=== PATIENT | female | born 1975 | race Two or more races ===

== ENCOUNTER 2016-06-24 05:32 | Day surgery (SDC) | payer OTHER ==
[2016-06-13 10:17] LABS: HEMATOCRIT 40.4 % (36.0-47.0); HEMOGLOBIN 13.2 g/dL (12.0-15.5); HGB HCT DIFFERENCE -0.8; MEAN CORPUSCULAR HGB CONC 32.7 g/dL (32.0-36.0); MEAN CORPUSCULAR VOLUME 92 fl (80-97); RED BLOOD COUNT 4.39 10^6/uL (3.72-5.28); RED CELL DISTRIBUTION WIDTH 12.8 % (11.5-14.0); WHITE BLOOD COUNT 10.4 10^3/uL (4.0-10.5)
[2016-06-13 10:22] LABS: APPEARANCE,URINE SLIGHTLY-CLOUDY; BILIRUBIN,URINE NEGATIVE (NEGATIVE); GLUCOSE, URINE >=500 mg/dL (NEGATIVE); KETONES,URINE TRACE mg/dL (NEGATIVE); LEUKOCYTE ESTERASE,URINE TRACE (NEGATIVE); NITRITE,URINE NEGATIVE (NEGATIVE); PROTEIN,URINE NEGATIVE (NEGATIVE); URINE SPECIFIC GRAVITY 1.025; UROBILINOGEN,URINE NEGATIVE mg/dL (<2.0)
[2016-06-13 10:44] LABS: ALANINE AMINOTRANSFERASE 58 U/L (9-52); ALBUMIN 4.1 g/dL (3.5-5.0); ALKALINE PHOSPHATASE 54 U/L (38-126); ANION GAP 13 (5-19); ASPARTATE AMINO TRANSFERASE 29 U/L (14-36); BILIRUBIN,TOTAL 0.7 mg/dL (0.2-1.3); BLOOD UREA NITROGEN 15 mg/dL (7-20); CALCIUM 8.9 mg/dL (8.4-10.2); CARBON DIOXIDE 26 mmol/L (22-30); CHLORIDE 102 mmol/L (98-107); CREATININE RESULT 0.54 mg/dL (0.52-1.25); GLUCOSE 245 mg/dL (75-110); POTASSIUM 4.5 mmol/L (3.6-5.0); SODIUM 140.8 mmol/L (137-145); TOTAL PROTEIN 6.6 g/dL (6.3-8.2)
--- NOTE | 2016-06-13 19:02 | EKG REPORT ---
SEVERITY:- ABNORMAL ECG - SINUS RHYTHM PROBABLE ANTEROSEPTAL INFARCT, OLD : Confirmed by: Olvin Flody MD 13-Jun-2016 19:01:43
[~2016-06-24 05:32] MED LIST: CEFAZOLIN SODIUM 1 GM in DEXTROSE 5%-WATER 50 ML IV SCH; LACTATED RINGERS 1000 ML IV PRN; LIDOCAINE 0.5% INJ-PF (5 MG/ML) 50 ML SDV SUBCUT PRN
[2016-06-24] MEDS ORDERED: FENTANYL CITRATE INJ/PF 100 MCG/2 ML AMPUL ONE ×2 (06:41)
[2016-06-24] MEDS ORDERED: MIDAZOLAM 2 MG/2 ML INJ ONE (06:42)
[2016-06-24] MEDS ORDERED: MORPHINE SULFATE 10 MG/ML INJ ONE (06:42)
[2016-06-24] MEDS ORDERED: ACETAMINOPHEN 100 ML IV ONE (06:42)
[2016-06-24] MEDS ORDERED: DEXMEDETOMIDINE INJ 80 MCG/20 ML VIAL IV ONE (06:42)
[2016-06-24] MEDS ORDERED: PROPOFOL INJ 200 MG/20 ML VIAL IV ONE (06:42)
[2016-06-24] MEDS ORDERED: LIDOCAINE 1% INJ-PF (10 MG/ML) 30 ML SDV ONE (06:55)
[2016-06-24] MEDS ORDERED: BUPIVACAINE HCL 0.25 % INJ/PF (2.5 MG/1 ML) 30 ML VIAL ONE (06:55)
[2016-06-24] MEDS ORDERED: FENTANYL CITRATE INJ/PF 100 MCG/2 ML AMPUL IV PRN ×3 (07:21)
[2016-06-24] MEDS ORDERED: PROMETHAZINE HCL INJ 25 MG/1 ML VIAL IV PRN ×3 (07:21→09:25)
[2016-06-24] MEDS ORDERED: MORPHINE SULFATE 10 MG/ML INJ IV PRN (07:21)
[2016-06-24] MEDS ORDERED: OXYCODONE-ACETAMINOPHEN 5-325 MG TABLET PO PRN ×4 (07:21→09:24)
[2016-06-24] MEDS ORDERED: DIPHENHYDRAMINE HCL 50 MG/ML VIAL IV PRN (07:21)
[2016-06-24] MEDS ORDERED: MEPERIDINE HCL/PF INJ 25 MG/1 ML DISP.SYRIN IV PRN (07:21)
--- NOTE | 2016-06-24 09:38 | OPERATIVE REPORT E ---
Operative Report NAME: CHELSEY BRAND : 1975 AGE: 41Y DATE OF SURGERY: 06/24/2016 ROOM: PREOPERATIVE DIAGNOSES: 1. Dysfunctional uterine bleeding. 2. Undesired fertility. POSTOPERATIVE DIAGNOSES: 1. Dysfunctional uterine bleeding. 2. Undesired fertility. OPERATION: 1. Dilation and curettage. 2. Hysteroscopy. 3. NovaSure. 4. Laparoscopic Filshie clip application bilaterally. SURGEON: NJ ROMERO M.D. ANESTHESIA: General and 0.25% Marcaine. ESTIMATED BLOOD LOSS: Negligible. PERTINENT HISTORY AND OPERATIVE FINDINGS: This is a 41-year-old female desires elective an sterilization. She was also having problems with irregular bleeding and wanted to address that at this time as well. At the time of surgery, the vagina appeared to be normal. Cervix was fibrinous. The uterus was midline, slightly enlarged. Adnexa, tubes and ovaries appeared to be normal. PROCEDURE: Patient was brought into the OR, placed on the table in a supine position, induced under general anesthesia. Following this, she was repositioned in dorsal lithotomy position, prepped and draped in a sterile fashion. The bladder was drained of about 15 mL of clear yellow urine. An exam under anesthesia was done. A weighted speculum was inserted. The cervix was grasped on its anterior lip with a single-tooth tenaculum, sounded to 10 cm and a tenaculum probe was then inserted. The other equipment was removed. Attention was turned toward the abdominal wall. A Veress needle was introduced umbilically carried through various layers until the abdominal cavity was entered. Upon entering the abdominal cavity, approximately 4 liters of CO2 were injected. The opening pressure was 6 cm of water, the closing pressure was 15 cm of water. Having established a pneumoperitoneum, the Veress needle was removed. A small incision was made infraumbilical. Through this incision a trocar and sleeve were inserted. The trocar was removed, and through the sleeve a laparoscope was inserted. A second incision was made suprapubically. Through this incision a trocar and sleeve were inserted. The trocar and sleeve were removed, and through the sleeve a probe was inserted. The contents of the pelvis and abdomen were then visualized without any essential abnormalities. Having accomplished this, the Filshie clip applicator was then directed through the suprapubic port. The right and left tubes were then clipped with the Filshie clip in the narrow portion. This terminated this part of procedure. Pictures were taken. The lower sleeve was removed. There was no evidence of active bleeding. The CO2 was allowed to escape. The upper sleeve was then removed as well. We approximately 4 mL of 0.25% Marcaine injected in the subumbilical incision and another 4 mL of 0.25% Marcaine injected in the suprapubic incision. The fascia was then closed with interrupted 0 Vicryl in both the subumbilical and suprapubic incisions. Skin edges in the subumbilical incision were closed with a subcuticular using a 4.0 Prolene. The skin edges in the suprapubic area were closed with interrupted using 4-0 Prolene. This terminated this part of the procedure. The patient had a bandages applied. Attention was turned back down to the pelvis. The tenaculum probe was removed and a weighted speculum was inserted. The cervix was grasped on its anterior lip with two single-tooth tenaculums. It was sounded to 10 cm. It was dilated to a #8 dilator. The cavity length turned out to be 5 cm as the cervical length was 5 cm. Having established the length of the uterine cavity, a curettage was carried out and this was sent to the laboratory for further evaluation. Then, the hysteroscope was introduced through the cervix and the endometrial cavity was visualized. There were no abnormalities visualized. The hysteroscope was allowed to drain the saline out and then the NovaSure equipment was purged and gently inserted through the cervical os until we reached the fundus. The NovaSure was opened and then going vjnpu-dykgr-eapo-west and rotating 45 degrees and pulling back in between, we established a width of 4.3. Having established the length of 5 and a width of 4.3, the equipment was purged and then fired. We had a burn time I think of about 50+ seconds; having accomplished this, the equipment was then closed and removed. The hysteroscope was then reinserted and visualized. It appeared that we had a fairly good burn. The excess saline was then sucked out and the other equipment was removed. There was some bleeding on the tenaculum on the left side. This was treated with Monsel. This took care of the bleeding. The equipment was removed. The patient was put back into a supine position and anesthesia was discontinued. She was then transferred to the recovery room in satisfactory condition. Once again, estimated blood loss was negligible. Findings were consistent with dysfunctional uterine bleeding, no exact etiology was ascertained and fertility was handled with Filshie clips applied laparoscopically. DICTATING PHYSICIAN: NJ ROMERO M.D. [id number] PHY#: [id number] ID: [id number] JOB#: [id number] ACCT: [id number] cc:NJ ROMERO M.D. >
[2016-06-24] MEDS ORDERED: GLYCOPYRROLATE INJ 0.4 MG/2 ML VIAL ONE (09:46)
[2016-06-24] MEDS ORDERED: SUCCINYLCHOLINE CHLORIDE INJ 200 MG/10 ML VIAL ONE (09:46)
[2016-06-24] MEDS ORDERED: ROCURONIUM BROMIDE INJ 50 MG/5 ML VIAL IV ONE (09:46)
[2016-06-24] MEDS ORDERED: LIDOCAINE 2% INJ-PF (20 MG/ML) 10 ML AMPUL ONE (09:46)
[2016-06-24] MEDS ORDERED: ONDANSETRON HCL INJ/PF 4 MG/2 ML SDV ONE (09:46)
[2016-06-24] MEDS ORDERED: NEOSTIGMINE METHYLSULFATE 10 MG/10 ML VIAL ONE (09:46)
[2016-06-24] MEDS ORDERED: PHENYLEPHRINE HCL INJ/PF 10 MG/1 ML SDV ONE (09:46)
[2016-06-24] MEDS ORDERED: DEXAMETHASONE SOD PHOSPHATE INJ 4 MG/1 ML VIAL ONE (09:46)
[2016-06-24 11:17] VITALS: BP 122/70
== END 2016-06-24 10:45 | disposition home or self-care (01) ==
LOC: OROUT 05:32
PROVIDERS: ATTEND Obstetrics & Gynecology
PROC: 0UL74CZ Occlusion of Bilateral Fallopian Tubes with Extraluminal Device, Percutaneous Endoscopic Approach (ICD-10-PCS; principal; 2016-06-24 07:30)
DX: N92.1 Excessive and frequent menstruation with irregular cycle (principal); Z30.2 Encounter for sterilization; E11.9 Type 2 diabetes mellitus without complications; I10 Essential (primary) hypertension; E66.9 Obesity, unspecified; Z87.891 Personal history of nicotine dependence; Z79.4 Long term (current) use of insulin; Z79.82 Long term (current) use of aspirin; Z79.899 Other long term (current) drug therapy; I25.2 Old myocardial infarction; Z98.61 Coronary angioplasty status
CPT/HCPCS: 93005; 36415; 82962; 85027; 81025; 80053; 81001; 88305 ×2; 93010; 58671; J2250; J0690; J3490 ×3; J1100; J3010; J2270; J2370; J0330; J2405; J2704; J0131; 851

== ENCOUNTER → 2018-01-09 | Outpatient (CLI) | payer OTHER ==
--- NOTE | 2018-01-09 18:08 | WOMENS IMAGING REPORT ---
EXAM DESCRIPTION: BILAT SCREENING MAMMO W/CAD COMPLETED DATE/TIME: 01/09/2018 10:27 am REASON FOR STUDY: ROUTINE SCREENING Z12.31 Z12.31 ENCNTR SCREEN MAMMOGRAM FOR MALIGNANT NEOPLASM OF PAOLO COMPARISON: Baseline study TECHNIQUE: Standard craniocaudal and mediolateral oblique views of each breast recorded using digita l acquisition. LIMITATIONS: None. FINDINGS: No masses, calcifications or architectural distortion. No areas of suspicion. Read with the assistance of CAD. .[facility] - R2 Cenova Version 1.3 .[facility] - R2 Cenova Version 1.3 .[facility] - R2 Cenova Version 2.4 .[facility] R2 Cenova Version 2.4 .[facility] - R2 Gate Agent Version 9.2 IMPRESSION: NORMAL MAMMOGRAM. BIRADS 1. BREAST DENSITY: b. There are scattered areas of fibroglandular density. BIRAD: 1 NEGATIVE RECOMMENDATION: ROUTINE SCREENING COMMENT: The patient has been notified of the results by letter per SA requirements. Additional no tification policies are in place for contacting patient with suspicious or incomplete findings. Quality ID #225: The [employer] recommends an annual screening mammogram for women aged 40 years or over. This facility utilizes a reminder system to ensure that all patients receive reminder letters, and/or direct phone calls for appointments. This includes reminders for routine scr eening mammograms, diagnostic mammograms, or other Breast Imaging Interventions when appropriate. Th is patient will be placed in the appropriate reminder system. The [employer] (ACR) has developed recommendations for screening MRI of the breast s in certain patient populations, to be used in conjunction with mammography. Breast MRI surveillanc e may be appropriate for women with more than 20% lifetime risk of developing breast cancer as deter mined by genetic testing, significant family history of the disease, or history of mantle radiation f or Hodgkins Disease. ACR Practice Guidelines 2008. TECHNICAL DOCUMENTATION: FINDING NUMBER: (1) ASSESSMENT: (1) JOB ID: [id number] [employer]- All Rights Reserved Reading location - IP/workstation name: [email or web address]
== END ==
LOC: WI 09:27
PROVIDERS: ATTEND Physician Assistant
DX: Z12.31 Encounter for screening mammogram for malignant neoplasm of breast (principal)
CPT/HCPCS: 77067

== ENCOUNTER → 2019-02-03 | Outpatient (CLI) | payer OTHER ==
--- NOTE | 2019-02-04 13:13 | WOMENS IMAGING REPORT ---
EXAM DESCRIPTION: 3D SCREENING MAMMO BILAT COMPLETED DATE/TIME: 02/03/2019 1:57 pm REASON FOR STUDY: Z12.31 SCREENING MAMMO Z12.31 ENCNTR SCREEN MAMMOGRAM FOR MALIGNANT NEOPLASM OF B RE COMPARISON: 01/09/2018 EXAM PARAMETERS: Views: Standard craniocaudal and mediolateral oblique views of each breast recorded using digital acquisition and breast tomosynthesis. Read with the assistance of CAD. .[facility] - [employer] Umbrella Finisher Version 9.2 LIMITATIONS: None. FINDINGS: No suspicious masses, suspicious calcifications or architectural distortion. No areas of c oncern. IMPRESSION: NEGATIVE MAMMOGRAM. BIRADS 1. BREAST DENSITY: a. The breasts are almost entirely fatty. BIRAD: ASSESSMENT: 1 NEGATIVE RECOMMENDATION: ROUTINE SCREENING COMMENT: The patient has been notified of the results by letter per MQSA requirements. Additional no tification policies are in place for contacting patient with suspicious or incomplete findings. Quality ID #225: The [employer] recommends an annual screening mammogram for women aged 40 years or over. This facility utilizes a reminder system to ensure that all patients receive reminder letters, and/or direct phone calls for appointments. This includes reminders for routine scr eening mammograms, diagnostic mammograms, or other Breast Imaging Interventions when appropriate. Th is patient will be placed in the appropriate reminder system. TECHNICAL DOCUMENTATION: FINDING NUMBER: (1) ASSESSMENT: (1) JOB ID: [id number] [employer]- All Rights Reserved Reading location - IP/workstation name: [email or web address]
== END ==
LOC: WI 13:40
PROVIDERS: ATTEND Physician Assistant
DX: Z12.31 Encounter for screening mammogram for malignant neoplasm of breast (principal)
CPT/HCPCS: 77063; 77067

== ENCOUNTER → 2019-06-25 | Day surgery (SDC) | payer OTHER ==
--- NOTE | 2019-06-25 12:47 | RADIOLOGY REPORT (SQ) ---
EXAM DESCRIPTION: FLUORO/NEEDLE PLACEMENT; ARTHRO HIP INJ W/ANESTHESIA COMPLETED DATE/TIME: 06/25/2019 10:34 am REASON FOR STUDY: PAIN IN LEFT HIP M25.552 PAIN IN LEFT HIP COMPARISON: None. FLUOROSCOPY TIME: 20 seconds 2 images saved to PACS. LIMITATIONS: None. PROCEDURE: Procedure, risks, benefits and alternatives explained to patient who then gave written co nsent. The left hip was marked and a time-out was called for correct marking verification. Entry si te marked using fluoroscopic guidance. Hip prepped and draped using sterile technique. Local anesth esia achieved . Hypodermic needle introduced into the joint space under direct fluoroscopic visualiz ation. Non-ionic contrast instilled to confirm intra-articular position. Additional dilute non-ioni c contrast instilled. Needle removed and entry site covered with sterile bandage. No immediate comp lications noted. TECHNIQUE: Digital images acquired during fluoroscopy and stored on PACS. Patient immediately take n to the CT suite for additional imaging. INJECTION LOCATION: Left hip CONTRAST TYPE AND AMOUNT: 10 mL dilute Omnipaque. IMPRESSION: SUCCESSFUL NEEDLE PLACEMENT AND INJECTION FOR LEFT HIP CT ARTHROGRAM. COMMENT: None Quality ID 145: Final reports for procedures using fluoroscopy that document radiation exposure gia andrey, or exposure time and number of fluorographic images (if radiation exposure indices are not avail able) TECHNICAL DOCUMENTATION: JOB ID: [id number] [employer]- All Rights Reserved Reading location - IP/workstation name: [email or web address] [id number]
--- NOTE | 2019-06-25 12:47 | RADIOLOGY REPORT (SQ) ---
EXAM DESCRIPTION: FLUORO/NEEDLE PLACEMENT; ARTHRO HIP INJ W/ANESTHESIA COMPLETED DATE/TIME: 06/25/2019 10:34 am REASON FOR STUDY: PAIN IN LEFT HIP M25.552 PAIN IN LEFT HIP COMPARISON: None. FLUOROSCOPY TIME: 20 seconds 2 images saved to PACS. LIMITATIONS: None. PROCEDURE: Procedure, risks, benefits and alternatives explained to patient who then gave written co nsent. The left hip was marked and a time-out was called for correct marking verification. Entry si te marked using fluoroscopic guidance. Hip prepped and draped using sterile technique. Local anesth esia achieved . Hypodermic needle introduced into the joint space under direct fluoroscopic visualiz ation. Non-ionic contrast instilled to confirm intra-articular position. Additional dilute non-ioni c contrast instilled. Needle removed and entry site covered with sterile bandage. No immediate comp lications noted. TECHNIQUE: Digital images acquired during fluoroscopy and stored on PACS. Patient immediately take n to the CT suite for additional imaging. INJECTION LOCATION: Left hip CONTRAST TYPE AND AMOUNT: 10 mL dilute Omnipaque. IMPRESSION: SUCCESSFUL NEEDLE PLACEMENT AND INJECTION FOR LEFT HIP CT ARTHROGRAM. COMMENT: None Quality ID 145: Final reports for procedures using fluoroscopy that document radiation exposure gia andrey, or exposure time and number of fluorographic images (if radiation exposure indices are not avail able) TECHNICAL DOCUMENTATION: JOB ID: [id number] [employer]- All Rights Reserved Reading location - IP/workstation name: [email or web address] [id number]
--- NOTE | 2019-06-25 16:07 | RADIOLOGY REPORT (SQ) ---
EXAM DESCRIPTION: CT LEFT LOWER EXTREMITY WITH COMPLETED DATE/TIME: 06/25/2019 10:30 am REASON FOR STUDY: PAIN IN LEFT HIP M25.552 PAIN IN LEFT HIP COMPARISON: Arthrogram same date left hip TECHNIQUE: Post arthrogram CT of the left hip performed. Images reviewed with soft tissue and bone windows. Reconstructed coronal and sagittal MPR images reviewed. All images stored on PACS. All CT scanners at this facility use dose modulation, iterative reconstruction, and/or weight based d osing when appropriate to reduce radiation dose to as low as reasonably achievable (ALARA). [facility]: Dose Right [facility]: CareDose [facility]: Dose Right [facility]: Teradose 4D [facility]: Swipe.to RADIATION DOSE: 15 mGy. LIMITATIONS: None. FINDINGS: Normal bone density. No fracture. No lytic or blastic lesions. Left hip joint articular cartilage thickness is normal. No femoral head density abnormality worrisom e for avascular necrosis. On axial image 50, coronal image 28 and sagittal image 29, a tiny tear in the anterior superior aceta bular labrum is present without paralabral cysts. No intra-articular loose bodies. Joint capsule is well distended. No gross inflammation or fluid over the trochanteric bursa. Left SI joint unremarkable. Left pelvic soft tissues unremarkable. IMPRESSION: Tiny tear in the anterior left acetabular labrum without paralabral cyst. TECHNICAL DOCUMENTATION: JOB ID: [id number] Quality ID # [id number]: Final reports with documentation of one or more dose reduction techniques (e.g., Au tomated exposure control, adjustment of the mA and/or kV according to patient size, use of iterative reconstruction technique) 2010 [employer]- All Rights Reserved Reading location - IP/workstation name: [email or web address]
== END ==
LOC: RAD 09:48
PROVIDERS: ATTEND Orthopaedic Surgery Sports Medicine
DX: M25.552 Pain in left hip (principal)
CPT/HCPCS: 27095; 77002